=== PATIENT | female | born 1960 | race Caucasian/White ===

== ENCOUNTER 2023-12-24 07:32 | Outpatient (CLI) | payer BC ==
[2023-12-24] MEDS ORDERED: Iopamidol 370 76% 100 ML VIAL ONE (14:54)
== END 2023-12-24 07:33 | disposition home or self-care (01) ==
LOC: BICCT 07:32
PROVIDERS: ATTEND Physician Assistant Medical
DX: R19.7 Diarrhea, unspecified (principal); I72.3 Aneurysm of iliac artery
CPT/HCPCS: 74177; 82565